=== PATIENT | male | born 1980 | race Caucasian/White ===

== ENCOUNTER 2017-06-08 13:32 | Emergency (ER) | payer MEDICAID ==
[2017-06-08] MEDS ORDERED: NORMAL SALINE 1000 ML 1,000 ML IV PRN (13:45)
[2017-06-08] MEDS ORDERED: MORPHINE SULFATE 10 MG/ML INJ IV ONE ×3 (13:46→14:57)
--- NOTE | 2017-06-08 13:47 | ER Document Report ---
ED Medical Screen (RME) - General Chief Complaint: Post Surgical Pain Stated Complaint: RIGHT FINGER PAIN Time Seen by Provider: 06/08/17 13:45 Notes: Patient had a recent operation at [facility]. The operation was for damage done to his hand secondary to a lawnmower accident. He states he felt that his fingers are not healing properly and were infected so he sought a second opinion from Dr. Hill. He states that he was back to Dr. Hill's office today for a recheck and they referred him to the emergency department. TRAVEL OUTSIDE OF THE [place] IN LAST 30 DAYS: No - Related Data Allergies/Adverse Reactions: No Known Allergies Allergy (Unverified 06/08/17 13:36) Past Medical History Renal/ Medical History: Denies: Hx Peritoneal Dialysis Physical Exam - Vital signs Vitals: Temp Pulse BP Pulse Ox 98.5 F 77 155/103 H 98 06/08/17 13:38 06/08/17 13:38 06/08/17 13:38 06/08/17 13:38 Course - Vital Signs Vital signs: Temp Pulse Resp BP Pulse Ox 98.5 F 77 155/103 H 98 06/08/17 13:38 06/08/17 13:38 06/08/17 13:38 06/08/17 13:38
[2017-06-08 14:30] LABS: ABSOLUTE EOSINOPHILS # (AUTO) 0.1 10^3/uL (0.0-0.6); ABSOLUTE LYMPHOCYTES (AUTO) 1.8 10^3/uL (0.5-4.7); ABSOLUTE MONOCYTES (AUTO) 0.5 10^3/uL (0.1-1.4); ABSOLUTE NEUT (AUTO) 6.6 10^3/uL (1.7-8.2); BASOPHILS % (AUTO) 0.2 % (0-2); EOSINOPHILS % (AUTO) 1.3 % (0-6); HEMATOCRIT 46.3 % (37.9-51.0); HEMOGLOBIN 15.9 g/dL (13.5-17.0); HGB HCT DIFFERENCE 1.4; LYMPHOCYTES % (AUTO) 20.1 % (13-45); MEAN CORPUSCULAR HEMOGLOBIN 31.5 pg (27.0-33.4); MEAN CORPUSCULAR HGB CONC 34.4 g/dL (32.0-36.0); MEAN CORPUSCULAR VOLUME 91 fl (80-97); MONOCYTES % (AUTO) 5.3 % (3-13); RED BLOOD COUNT 5.06 10^6/uL (4.35-5.55); RED CELL DISTRIBUTION WIDTH 12.9 % (11.5-14.0); SEGMENTED NEUTROPHILS % (AUTO) 73.1 % (42-78)
[2017-06-08] MEDS ORDERED: HYDROMORPHONE HCL INJ/PF 2 MG/ML AMPULE IV ONE ×2 (15:04→15:32)
[2017-06-08] MEDS ORDERED: DOXYCYCLINE HYCLATE 100 MG TABLET PO ONE (15:12)
--- NOTE | 2017-06-08 15:17 | ER Document Report ---
ED General - General Chief Complaint: Post Surgical Pain Stated Complaint: RIGHT FINGER PAIN Time Seen by Provider: 06/08/17 13:45 Mode of Arrival: Ambulatory Information source: Patient Notes: Arian states they have a ride home and are not driving. Patient is a 36 -year-old male who presents to the ER today for pain after surgery to his right third and fourth fingers on 31 May after getting them caught in a lawnmower accident. Patient had partial amputations to both fingers at [facility] by Dr. Aguilar. He states that "that surgeon amputated them wrong." So he got a second opinion by Dr. Henderson, ortho here in [place]. He states that he went to Dr. Henderson's office and that he told him to come to the emergency department. Dr. 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 TRAVEL OUTSIDE OF THE [place] IN LAST 30 DAYS: No - Related Data Allergies/Adverse Reactions: No Known Allergies Allergy (Unverified 06/08/17 13:36) Past Medical History - General Information source: Patient - Social History Smoking Status: Current Every Day Smoker Chew tobacco use (# tins/day): No Frequency of alcohol use: None Drug Abuse: None Family History: Reviewed & Not Pertinent Patient has suicidal ideation: No Patient has homicidal ideation: No Renal/ Medical History: Denies: Hx Peritoneal Dialysis Review of Systems - Review of Systems Constitutional: No symptoms reported EENT: No symptoms reported Cardiovascular: No symptoms reported Respiratory: No symptoms reported Gastrointestinal: No symptoms reported Genitourinary: No symptoms reported Male Genitourinary: No symptoms reported Musculoskeletal: See HPI Skin: No symptoms reported Hematologic/Lymphatic: No symptoms reported Neurological/Psychological: No symptoms reported Physical Exam - Vital signs Vitals: Temp Pulse BP Pulse Ox 98.5 F 77 155/103 H 98 06/08/17 13:38 06/08/17 13:38 06/08/17 13:38 06/08/17 13:38 - Notes Notes: PHYSICAL EXAMINATION: GENERAL:appears to be uncomfortable, holding right hand above his head bandaged , but in no acute distress. HEAD: Atraumatic, normocephalic. EYES: Pupils equal round and reactive to light, extraocular movements intact, sclera anicteric, conjunctiva are normal. NECK: Normal range of motion, supple without lymphadenopathy LUNGS: CTAB and equal. No wheezes rales or rhonchi. HEART: Regular rate and rhythm without murmurs EXTREMITIES: right hand 3rd and 4th digits with distal partial amputations through nail bed/angulated, 4th digit erythematous to the tip only around sutures, no fluctuance or induration, no drainage or bleeding, Normal range of motion but with pain, tender to palpation, no pitting edema. No cyanosis. NEUROLOGICAL: Cranial nerves grossly intact. Normal sensory/motor exams. PSYCH: Normal mood, normal affect. SKIN: Warm, Dry, normal turgor, no rashes or lesions noted Course - Re-evaluation Re-evalutation: 06/08/17 15:15 Dr. Henderson was spoken to, states he has no idea what pt is talking about, that he did not see him in the office today and that with a normal wbc and afebrile, pt can be discharged with doxycycline added to his augmentin to follow up with Dr. Henderson in the office in 2 days. - Vital Signs Vital signs: Temp Pulse Resp BP Pulse Ox 99.1 F 77 16 143/103 H 95 06/08/17 15:53 06/08/17 15:53 06/08/17 15:53 06/08/17 15:53 06/08/17 15:53 - Laboratory Result Diagrams: 06/08/17 14:00 06/08/17 14:00 Discharge - Discharge Clinical Impression: Finger pain, right, post surgical pain Condition: Stable Disposition: HOME, SELF-CARE Additional Instructions: Return immediately for any new or worsening symptoms. Follow up with primary care provider, call tomorrow to make followup appointment. Prescriptions: Doxycycline Hyclate 100 mg PO BID #20 capsule Oxycodone HCl/Acetaminophen [Percocet 5-325 mg Tablet] 1 tab PO Q4 PRN #12 tab PRN Reason: Referrals: CHRISTINE HENDERSON DO [ACTIVE STAFF] - Follow up as needed
[2017-06-08 15:54] VITALS: BP 143/103
== END 2017-06-08 15:55 | disposition home or self-care (01) ==
LOC: ER 13:32
DX: G89.18 Other acute postprocedural pain (principal); M79.644 Pain in right finger(s); Z89.021 Acquired absence of right finger(s); F17.200 Nicotine dependence, unspecified, uncomplicated
CPT/HCPCS: 96376; 99283; 96361; 96374; 96375; 36415; 85025; J3490; J2270; J1170; J7030

== ENCOUNTER 2018-01-11 10:45 | Day surgery (SDC) | payer MEDICAID ==
[2018-01-04 11:14] LABS: ABSOLUTE EOSINOPHILS # (AUTO) 0.2 10^3/uL (0.0-0.6); ABSOLUTE LYMPHOCYTES (AUTO) 2.5 10^3/uL (0.5-4.7); ABSOLUTE MONOCYTES (AUTO) 0.7 10^3/uL (0.1-1.4); BASOPHILS % (AUTO) 0.4 % (0-2); EOSINOPHILS % (AUTO) 1.7 % (0-6); HEMATOCRIT 50.1 % (37.9-51.0); HEMOGLOBIN 17.4 g/dL (13.5-17.0); MEAN CORPUSCULAR HEMOGLOBIN 31.8 pg (27.0-33.4); MEAN CORPUSCULAR HGB CONC 34.6 g/dL (32.0-36.0); MEAN CORPUSCULAR VOLUME 92 fl (80-97); MONOCYTES % (AUTO) 6.3 % (3-13); PLATELET COUNT 201 10^3/uL (150-450); RED BLOOD COUNT 5.45 10^6/uL (4.35-5.55); RED CELL DISTRIBUTION WIDTH 12.6 % (11.5-14.0); SEGMENTED NEUTROPHILS % (AUTO) 67.6 % (42-78); TOTAL CELLS COUNTED % (AUTO) 100 %; WHITE BLOOD COUNT 10.4 10^3/uL (4.0-10.5)
--- NOTE | 2018-01-04 11:24 | RADIOLOGY REPORT (SQ) ---
EXAM DESCRIPTION: CHEST PA/LATERAL COMPLETED DATE/TIME: 01/04/2018 10:26 am REASON FOR STUDY: PRE-OP COMPARISON: None. TECHNIQUE: Frontal and lateral radiographic views of the chest acquired. NUMBER OF VIEWS: Two view. LIMITATIONS: None. FINDINGS: LUNGS AND PLEURA: Suspect mild scarring in the lingula. Lungs otherwise clear. MEDIASTINUM AND HILAR STRUCTURES: No masses or contour abnormalities. HEART AND VASCULAR STRUCTURES: Heart normal size. No evidence for failure. BONES: No acute findings. HARDWARE: None in the chest. OTHER: No other significant finding. IMPRESSION: No acute or suspicious findings suggested, findings as above. TECHNICAL DOCUMENTATION: JOB ID: [id number] [employer]- All Rights Reserved Reading location - IP/workstation name: [email or web address]
[2018-01-04 11:33] LABS: ANION GAP 13 (5-19); BLOOD UREA NITROGEN 13 mg/dL (7-20); CALCIUM 10.5 mg/dL (8.4-10.2); CARBON DIOXIDE 29 mmol/L (22-30); CHLORIDE 99 mmol/L (98-107); GLUCOSE 86 mg/dL (75-110); POTASSIUM 4.3 mmol/L (3.6-5.0); SODIUM 141.2 mmol/L (137-145)
[2018-01-04 12:50] LABS: APPEARANCE,URINE CLEAR; BILIRUBIN,URINE NEGATIVE (NEGATIVE); COLOR,URINE STRAW; GLUCOSE, URINE NEGATIVE (NEGATIVE); KETONES,URINE NEGATIVE (NEGATIVE); LEUKOCYTE ESTERASE,URINE NEGATIVE (NEGATIVE); NITRITE,URINE NEGATIVE (NEGATIVE); PROTEIN,URINE NEGATIVE (NEGATIVE); URINE SPECIFIC GRAVITY 1.006; UROBILINOGEN,URINE NEGATIVE mg/dL (<2.0)
--- NOTE | 2018-01-04 13:28 | EKG REPORT ---
SEVERITY:- NORMAL ECG - SINUS RHYTHM : Confirmed by: Giovanni Gordon MD 04-Jan-2018 13:27:21
[~2018-01-11 10:45] MED LIST: CEFAZOLIN SODIUM 2 GM in NORMAL SALINE 100 ML IV PRN; LACTATED RINGERS 1000 ML IV PRN; LIDOCAINE 0.5% INJ-PF (5 MG/ML) 50 ML SDV SUBCUT PRN
[2018-01-11] MEDS ORDERED: CEFAZOLIN 2 GM/D5W RTU 2 GM/50 ML RTUPB IV ONE (12:04)
[2018-01-11] MEDS ORDERED: BUPIVACAINE HCL 0.5 % INJ/PF 30 ML SDV ONE (12:55)
[2018-01-11] MEDS ORDERED: LIDOCAINE 1% INJ-PF (10 MG/ML) 30 ML SDV ONE (12:55)
[2018-01-11] MEDS ORDERED: FENTANYL CITRATE INJ/PF 100 MCG/2 ML AMPUL ONE (13:02)
[2018-01-11] MEDS ORDERED: LIDOCAINE 2% INJ-PF (20 MG/ML) 10 ML AMPUL ONE (13:02)
[2018-01-11] MEDS ORDERED: MIDAZOLAM 2 MG/2 ML INJ ONE (13:03)
[2018-01-11] MEDS ORDERED: ACETAMINOPHEN 100 ML IV ONE (13:03)
[2018-01-11] MEDS ORDERED: PROPOFOL INJ 200 MG/20 ML VIAL IV ONE (13:03)
[2018-01-11] MEDS ORDERED: DIPHENHYDRAMINE HCL 50 MG/ML VIAL IV PRN (13:32)
[2018-01-11] MEDS ORDERED: MEPERIDINE HCL/PF INJ 25 MG/1 ML DISP.SYRIN IV PRN (13:32)
[2018-01-11] MEDS ORDERED: OXYCODONE-ACETAMINOPHEN 5-325 MG TABLET PO PRN ×3 (13:32→14:08)
[2018-01-11] MEDS ORDERED: ONDANSETRON HCL INJ/PF 4 MG/2 ML SDV IV PRN ×2 (13:32→14:08)
[2018-01-11] MEDS ORDERED: FENTANYL CITRATE INJ/PF 100 MCG/2 ML AMPUL IV PRN ×3 (13:32)
[2018-01-11] MEDS ORDERED: PROMETHAZINE HCL INJ 25 MG/1 ML VIAL IV PRN ×2 (13:32)
--- NOTE | 2018-01-11 14:05 | Operative Report ---
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 He was treated conservatively over time patient's wounds healed appropriately but developed near deformity. At that point we discussed treatment options decision was made to proceed with nail ablation of the right ring finger. Patient understands if no growth returns or he continues to have discomfort may require amputation. Procedure In Detail: Patient was seen and evaluated in the preoperative holding area. The RIGHT upper extremity was initialized and marked. Patient received 2g of Ancef IV for bacterial prophylaxis. Patient was taken back to the operative room where transferred to the operative table. A surgical team debriefing was performed ensuring all instrumentation was available, the surgical procedure was discussed with possible concerns reviewed. A digital block was performed utilizing 10 mL 50:50 mixture of 0.5% Marcaine and 1% lidocaine without epinephrine. The upper extremity was prepped with chlorhexidine and alcohol and draped in a sterile fashion. A timeout was done identifying correct patient, procedure and extremity everyone in attendance agree with this and verbalized no concerns. A digital tourniquet was placed. The paronychia and nail fold was carefully elevated with a [place] elevator. I then elevated from the remaining hyponychium along the sterile matrix to remove the nail plate. Once the nail plate was adequately removed the germinal matrix was identified. The germinal matrix was then excised. With the Bovie the underlying germinal matrix was ablated. The distal phalanx tuft was excised. To provide coverage over the bone a [place] advancement flap was established and bluntly dissected proximally to elevate the skin over the distal tip adequately covering the wound. The tourniquet was then removed there was evidence of bleeding along the distal tip. The wound was then copiously irrigated with normal saline. A soft dressing was placed. Sponge counts, instrument counts, needle counts counts were correct. Patient was then awoken from anesthesia. Transferred from the operating room table to the operating room stretcher. There was no intraoperative complications patient tolerated procedure well stable to PACU. Postoperative plan: Patient will follow-up as scheduled for wound check. They will call with any questions or concerns.
--- NOTE | 2018-01-11 14:05 | Discharge Summary ---
Discharge Summary (SDC) - Discharge Final Diagnosis: Nail deformity after partial tip amputation right ring/middle finger Date of Surgery: 01/11/18 Discharge Date: 01/11/18 Condition: Good Treatment or Instructions: Schedule Follow Up w/ Dr. Stevo Hill @ [facility] for Surgery to be seen in 10-14 days or as scheduled [place]: [place]: [place]: May remove dressing on postop day #3, keep incision covered and dry. Ice and elevate May begin finger range of motion attempting to make full fist. Stool softener of choice when on pain medication. Prescriptions: Oxycodone HCl/Acetaminophen [Percocet 5-325 mg Tablet] 1 - 2 tab PO ASDIR PRN # 25 tablet PRN Reason: Discharge Diet: As Tolerated Respiratory Treatments at Home: Deep Breathing/Coughing Discharge Activity: No Lifting Over 10 Pounds, No Lifting/Push/Pulling Report the Following to Your Physician Immediately: Fever over 101 Degrees, Unusual Bleeding, Redness, Swelling, Warmth, Increased Soreness
[2018-01-11] MEDS ORDERED: MORPHINE SULFATE 10 MG/ML INJ IV PRN (14:08)
[2018-01-11 15:53] VITALS: BP 128/85
== END 2018-01-11 15:40 | disposition home or self-care (01) ==
LOC: OROUT 10:45
PROVIDERS: ATTEND Orthopaedic Surgery
PROC: 0HXFXZZ Transfer Right Hand Skin, External Approach (ICD-10-PCS; principal; 2018-01-11 13:30)
DX: L60.9 Nail disorder, unspecified (principal); F17.210 Nicotine dependence, cigarettes, uncomplicated; L03.011 Cellulitis of right finger; S68.61 Complete traumatic transphalangeal amputation of other and unspecified finger(s); S68.614A Complete traumatic transphalangeal amputation of right ring finger, initial encounter; X58.XXXD Exposure to other specified factors, subsequent encounter; E66.9 Obesity, unspecified; Z68.31 Body mass index [BMI] 31.0-31.9, adult
CPT/HCPCS: 93005; 36415; 85025; 80048; 81001; 71046; 93010; 11730; 14040; J2250; J3490 ×3; J3010; J2704; J0690; J0131; 400